=== PATIENT | male | born 1940 | race Caucasian/White ===

== ENCOUNTER 2023-12-03 15:30 | Inpatient (IN) ==
[2023-12-03] MEDS: 0.9 % SODIUM CHLORIDE 1,000 ML IV ONE (16:05)
[2023-12-03] MEDS: MECLIZINE 25 MG TABLET PO ONE (16:05)
[2023-12-03 16:11] LABS: Basophils # (Auto) 0.02 K/mcL (0.00-0.30); Basophils % (Auto) 0.2 % (0.0-2.0); Eosinophils # (Auto) 0.03 K/mcL (0.00-0.70); Eosinophils % (Auto) 0.3 % (0.0-7.0); Hematocrit 46.2 % (40.1-51.0); Hemoglobin 15.3 g/dL (13.7-17.5); Lymphocytes # (Auto) 1.01 K/mcL (1.50-4.80); Lymphocytes % (Auto) 9.9 % (15.5-49.0); Mean Cell Volume 90.4 fL (80.0-100.0); Mean Corpuscular HGB Conc 33.1 g/dL (31.0-36.0); Mean Platelet Volume 9.2 fL (8.8-12.5); Monocytes % (Auto) 4.9 % (1.0-12.0); Neutrophils % (Auto) 84.5 % (38.0-78.0); Platelet Count 261 K/mcL (140-440); RBC 5.11 M/mcL (4.63-6.08); Red Cell Distribution Width 13.5 % (11.5-14.5); WBC 10.2 K/mcL (4.5-11.0)
[2023-12-03 16:30] LABS: ALT/SGPT 18 U/L (<40); AST/SGOT 24 U/L (<40); Albumin 4.3 gm/dL (3.2-5.2); Albumin/Globulin Ratio 1.7 (1.0-2.3); Alkaline Phosphatase 96 U/L (39-117); Bilirubin,Total 0.5 mg/dL (0.1-1.0); Blood Urea Nitrogen 18 mg/dL (8-23); Carbon Dioxide 26 mmol/L (22-30); Chloride 102 mmol/L (96-108); Globulin 2.6 gm/dL (2.2-3.7); Glomerular Filtration Rate 78; Glucose 114 mg/dL (70-105); Potassium 3.7 mmol/L (3.3-5.1); Sodium 141 mmol/L (133-145)
[2023-12-03] MEDS ORDERED: ONDANSETRON 4 MG/2 ML VIAL IV PRN (20:18)
[2023-12-03] MEDS: HEPARIN 5,000 UNIT/ML VIAL SQ SCH (21:53)
[2023-12-03] MEDS: 0.9 % SODIUM CHLORIDE 1,000 ML IV SCH (21:53)
[2023-12-03] MEDS: 0.9 % SODIUM CHLORIDE 10 ML SYRINGE IV SCH (21:54)
[2023-12-04 06:49] LABS: Basophils # (Auto) 0.04 K/mcL (0.00-0.30); Basophils % (Auto) 0.5 % (0.0-2.0); Eosinophils # (Auto) 0.18 K/mcL (0.00-0.70); Eosinophils % (Auto) 2.2 % (0.0-7.0); Hemoglobin 14.1 g/dL (13.7-17.5); Lymphocytes # (Auto) 1.49 K/mcL (1.50-4.80); Lymphocytes % (Auto) 17.9 % (15.5-49.0); Mean Cell Volume 91.1 fL (80.0-100.0); Mean Corpuscular HGB Conc 32.8 g/dL (31.0-36.0); Mean Platelet Volume 9.1 fL (8.8-12.5); Monocytes # (Auto) 0.63 K/mcL (0.10-0.90); Monocytes % (Auto) 7.6 % (1.0-12.0); Neutrophils % (Auto) 71.7 % (38.0-78.0); Platelet Count 246 K/mcL (140-440); RBC 4.72 M/mcL (4.63-6.08); Red Cell Distribution Width 13.6 % (11.5-14.5); WBC 8.3 K/mcL (4.5-11.0)
[2023-12-04 07:11] LABS: Phosphorous 2.4 mg/dL (2.5-4.5)
[2023-12-04 07:12] LABS: ALT/SGPT 16 U/L (<40); AST/SGOT 21 U/L (<40); Albumin 3.8 gm/dL (3.2-5.2); Albumin/Globulin Ratio 1.7 (1.0-2.3); Alkaline Phosphatase 83 U/L (39-117); Bilirubin,Total 0.5 mg/dL (0.1-1.0); Blood Urea Nitrogen 17 mg/dL (8-23); Calcium 10.3 mg/dL (8.6-10.4); Carbon Dioxide 25 mmol/L (22-30); Chloride 105 mmol/L (96-108); Globulin 2.2 gm/dL (2.2-3.7); Glomerular Filtration Rate 82; Glucose 94 mg/dL (70-105); Potassium 3.5 mmol/L (3.3-5.1); Sodium 141 mmol/L (133-145)
[2023-12-04] MEDS: NEUTRA PHOS 1 PACKET PO ONE (08:37)
[2023-12-04] MEDS: valACYclovir 500 MG TABLET PO SCH (16:02)
[2023-12-04] MEDS ORDERED: CYCLOBENZAPRINE 10 MG TABLET PO PRN (22:05)
[2023-12-05 06:04] LABS: Basophils # (Auto) 0.05 K/mcL (0.00-0.30); Basophils % (Auto) 0.7 % (0.0-2.0); Eosinophils # (Auto) 0.17 K/mcL (0.00-0.70); Eosinophils % (Auto) 2.3 % (0.0-7.0); Hematocrit 41.2 % (40.1-51.0); Hemoglobin 13.5 g/dL (13.7-17.5); Lymphocytes % (Auto) 21.3 % (15.5-49.0); Mean Cell Volume 91.2 fL (80.0-100.0); Mean Corpuscular HGB Conc 32.8 g/dL (31.0-36.0); Mean Platelet Volume 9.3 fL (8.8-12.5); Monocytes # (Auto) 0.58 K/mcL (0.10-0.90); Monocytes % (Auto) 7.7 % (1.0-12.0); Neutrophils % (Auto) 67.7 % (38.0-78.0); Platelet Count 199 K/mcL (140-440); RBC 4.52 M/mcL (4.63-6.08); Red Cell Distribution Width 13.8 % (11.5-14.5); WBC 7.5 K/mcL (4.5-11.0)
[2023-12-05 06:41] LABS: ALT/SGPT 12 U/L (<40); AST/SGOT 26 U/L (<40); Albumin 3.6 gm/dL (3.2-5.2); Albumin/Globulin Ratio 1.8 (1.0-2.3); Alkaline Phosphatase 81 U/L (39-117); Bilirubin,Total 0.6 mg/dL (0.1-1.0); Blood Urea Nitrogen 22 mg/dL (8-23); Carbon Dioxide 24 mmol/L (22-30); Chloride 106 mmol/L (96-108); Glomerular Filtration Rate 82; Glucose 96 mg/dL (70-105); Potassium 3.8 mmol/L (3.3-5.1); Sodium 140 mmol/L (133-145)
[2023-12-05] MEDS: ASPIRIN 81 MG TAB.CHEW PO SCH (08:20)
[2023-12-05] MEDS: amLODIPine 10 MG TABLET PO SCH (08:20)
[2023-12-05] MEDS: POTASSIUM CHLORIDE 10 MEQ TABLET PO SCH (08:20)
[2023-12-05] MEDS: LISINOPRIL 20 MG TABLET PO SCH (08:21)
[2023-12-05] MEDS: HYDROCHLOROTHIAZIDE 25 MG TABLET PO SCH (08:23)
[2023-12-05] MEDS: SENNOSIDES 1 TABLET PO PRN (08:36)
[2023-12-05] MEDS ORDERED: BISACODYL 10 MG SUPP.RECT PR PRN (15:48)
[2023-12-05] MEDS: POLYETHYLENE GLYCOL 3350 17 GM PACKET PO PRN (16:52)
[2023-12-05] MEDS: DOCUSATE SODIUM 100 MG CAPSULE PO SCH (20:47)
[2023-12-06 07:15] LABS: ALT/SGPT 18 U/L (<40); AST/SGOT 24 U/L (<40); Albumin 3.9 gm/dL (3.2-5.2); Albumin/Globulin Ratio 1.6 (1.0-2.3); Alkaline Phosphatase 89 U/L (39-117); Bilirubin,Direct < 0.2 mg/dL (0-0.3); Bilirubin,Total 0.6 mg/dL (0.1-1.0); Blood Urea Nitrogen 18 mg/dL (8-23); Calcium 10.3 mg/dL (8.6-10.4); Carbon Dioxide 25 mmol/L (22-30); Chloride 103 mmol/L (96-108); Globulin 2.4 gm/dL (2.2-3.7); Glomerular Filtration Rate 82; Glucose 109 mg/dL (70-105); Lactate Dehydrogenase 198 U/L (135-225); Phosphorous 2.8 mg/dL (2.5-4.5); Potassium 3.9 mmol/L (3.3-5.1); Sodium 138 mmol/L (133-145); Triglycerides 166 mg/dL (<150); Uric Acid 6.7 mg/dL (2.5-8.0)
[2023-12-06] MEDS ORDERED: hydrALAZINE 20 MG/ML VIAL IV PRN (12:34)
[2023-12-07] MEDS ORDERED: LIDOCAINE 1% 10 ML VIAL SQ ONE (09:41)
[2023-12-07 13:57] LABS: Appearance,CSF Clear; Nucleated Cells,CSF 1 /cumm (0-5); Red Blood Cell,CSF 2 /cumm (0-1)
[2023-12-07] MEDS: ACETAMINOPHEN 325 MG TABLET PO PRN (16:03)
[2023-12-08 16:55] LABS: Arsenic Whole Blood <3 mcg/L (<23); Mercury Whole Blood <4 mcg/L (<OR=10)
== END 2023-12-08 11:50 | disposition home or self-care (01) | DRG 93 ==
LOC: MEDSUR 15:30 → ED 15:30 → MEDSUR 20:10
PROVIDERS: ADMIT Student in an Organized Health Care Education/Training Program; ATTEND Internal Medicine